=== PATIENT | female | born 1985 | race Caucasian/White ===

== ENCOUNTER 2019-02-25 04:50 | Inpatient (IN) | payer MEDICAID ==
[2019-02-25 06:48] LABS: ADD MAN DIFF? NO
[2019-02-25 06:52] LABS: BASOPHILS % 0.5 % (0.0-2.0); EOSINOPHILS # 0.1 10^3/ul (0.0-0.5); EOSINOPHILS % 0.9 % (0.0-7.0); HEMATOCRIT 35.8 % (37.0-47.0); HEMOGLOBIN 12.2 g/dl (12.0-16.0); LYMPHOCYTES # 1.5 10^3/ul (0.8-2.9); LYMPHOCYTES % 17.6 % (15.0-51.0); MEAN CORPUSCULAR HGB CONC 34.1 g/dl (32.0-37.0); MEAN CORPUSCULAR VOLUME 91.1 fl (82.0-101.0); MEAN PLATELET VOLUME 12.5 fl (7.4-10.4); MONOCYTE # 0.8 10^3/ul (0.3-0.9); MONOCYTES % 9.1 % (0.0-11.0); NEUTROPHILS % 70.7 % (39.0-77.0); PLATELET COUNT 118 10^3/UL (140-415); RED BLOOD COUNT 3.93 10^6/ul (4.20-5.40); RED CELL DISTRIBUTION WIDTH 13.6 % (11.5-14.5)
[2019-02-25 06:52] LABS: WHITE BLOOD COUNT 8.5 10^3/ul (4.8-10.8)
[2019-02-25 06:53] LABS: PLATELET COUNT 120 10^3/UL (140-415)
[2019-02-25 07:18] LABS: ALANINE AMINOTRANSFERASE 14 IU/L (13-69); ALBUMIN 3.5 g/dl (3.3-4.9); ALKALINE PHOSPHATASE 156 IU/L (42-121); ANION GAP 7 (5-13); ASPARTATE AMINO TRANSFERASE 17 IU/L (15-46); BILIRUBIN,INDIRECT 0.4 mg/dl (0-1.1); BILIRUBIN,TOTAL 0.4 mg/dl (0.2-1.3); BLOOD UREA NITROGEN 10 mg/dl (7-20); CALCIUM 9.1 mg/dl (8.4-10.2); CARBON DIOXIDE 22 mmol/L (21-31); CHLORIDE 109 mmol/L (97-110); CREATININE 0.55 mg/dl (0.44-1.00); Estimated GFR > 60 mL/min (>60); GLUCOSE 86 mg/dl (70-220); POTASSIUM 3.9 mmol/L (3.5-5.1); SODIUM 138 mmol/L (135-144); TOTAL PROTEIN 6.4 g/dl (6.1-8.1)
[2019-02-25] MEDS: LACTATED RINGER'S 1,000 ML IV ×3 (07:18→10:13)
[2019-02-25 07:19] LABS: INR 0.89; PROTIME 12.2 Sec (11.9-14.9)
[2019-02-25 07:20] LABS: PARTIAL THROMBOPLASTIN TIME 27.1 Sec (23.0-35.0)
[2019-02-25 07:45] LABS: ADD UMIC YES; UR ASCORBIC ACID NEGATIVE (NEGATIVE); UR BACTERIA FEW /HPF (NONE SEEN); UR BILIRUBIN (Dip) NEGATIVE (NEGATIVE); UR BLOOD (Dip) 3+ mg/dL (NEGATIVE); UR CLARITY CLEAR (CLEAR); UR COLOR STRAW (YELLOW); UR GLUCOSE (Dip) NEGATIVE (NEGATIVE); UR KETONES (Dip) NEGATIVE (NEGATIVE); UR LEUKOCYTE ESTERASE (Dip) NEGATIVE Leu/ul (NEGATIVE); UR NITRITE (Dip) NEGATIVE (NEGATIVE); UR RBC 0 /HPF (0-5); UR SPECIFIC GRAVITY (Dip) 1.004 (1.003-1.030); UR SQUAMOUS EPITHELIAL CELL FEW /HPF (FEW); UR TOTAL PROTEIN (Dip) NEGATIVE (NEGATIVE); UR UROBILINOGEN (Dip) NEGATIVE (NEGATIVE); UR WBC 0 /HPF (0-5)
[2019-02-25 07:47] LABS: THROMBIN TIME 14.9 SEC (13.8-19.1)
[2019-02-25] MEDS: TERBUTALINE 1 MG/ML INJ SC (08:57)
[2019-02-25] MEDS ORDERED: CARBOPROST 250 MCG INJ IM ×2 (10:00→12:30)
[2019-02-25] MEDS ORDERED: MISOPROSTOL 200 MCG TAB PR ×2 (10:00→12:30)
[2019-02-25] MEDS ORDERED: METHYLERGONOVINE 0.2 MG INJ IM ×2 (10:00→12:30)
[2019-02-25] MEDS ORDERED: OXYTOCIN 30 UNITS/LR 500 ML IV ×2 (10:00→12:30)
[2019-02-25] MEDS: CEFAZOLIN 2 GM/50 ML (PMX) 50 ML IVPB (10:13)
[2019-02-25] MEDS: CITRIC ACID/NA CITRATE 30 ML CUP PO (10:13)
[2019-02-25] MEDS: ONDANSETRON 4 MG INJ IV (10:14)
[2019-02-25] MEDS ORDERED: OXYTOCIN 30 UNITS/LR 500 ML BAG IV (10:34)
[2019-02-25] MEDS ORDERED: PHENYLephrine (100 MCG/ML) 10ML SYG (10:34)
[2019-02-25] MEDS ORDERED: morphine SULFATE/PF (10 MG/10 ML) INJ (10:35)
[2019-02-25] MEDS ORDERED: OXYTOCIN 10 UNIT INJ (10:35)
[2019-02-25] MEDS ORDERED: METOCLOPRAMIDE 10 MG INJ (11:09)
[2019-02-25] MEDS ORDERED: DEXAMETHASONE 4 MG/ML 1 ML INJ (11:09)
[2019-02-25] MEDS ORDERED: KETOROLAC 30 MG INJ (11:09)
[2019-02-25 11:21] LABS: AADO2 Cord Arterial 75.6 mmHg; Arterial Cord Blood pCO2 48.7 mmHG (25-50); CBA Base Excess -5.5 mmol/L; CBA COHb 0.4 %; CBA Oxygen Sat 28.3 mmHG; CBA Total Hemglobin 14.8 g/dl; Cord Blood Arterial pO2 15.8 mmHG (15.0-45.0); Fraction OxyHgb Cord Arterial 27.7 %; MODE ROOM AIR; MetHgb Cord Arterial 1.7 %; Sample Type CBA; Site CORD
[2019-02-25] MEDS: OXYTOCIN 30 UNITS/LR 500 ML IV ×2 (11:56→15:28)
[2019-02-25] MEDS ORDERED: HYDROCODONE/APAP (5/325) TAB PO (12:00)
[2019-02-25] MEDS ORDERED: NALOXONE (0.4 MG/ML) INJ IV (12:00)
[2019-02-25] MEDS ORDERED: ONDANSETRON 4 MG INJ IV (12:00)
[2019-02-25] MEDS ORDERED: NALBUPHINE HCL (10 MG/1 ML) INJ IV (12:00)
[2019-02-25] MEDS ORDERED: HYDROmorphONE 0.5 MG/0.5 ML SYG IV ×2 (12:00)
[2019-02-25] MEDS ORDERED: morphine 2 MG INJ IV ×2 (12:00)
[2019-02-25] MEDS ORDERED: ACETAMINOPHEN 500 MG TAB PO (12:00)
[2019-02-25] MEDS ORDERED: METHYLERGONOVINE 0.2 MG TAB PO (12:30)
[2019-02-25] MEDS: DIPHENHYDRAMINE 50 MG INJ IV (14:05)
[2019-02-25 15:20] LABS: RAPID PLASMA REAGIN NONREACTIVE (NR)
[2019-02-25 16:39] LABS: HEPATITIS B SURFACE ANTIGEN NEGATIVE (NEGATIVE)
[2019-02-25] MEDS: SENNA/DOCUSATE NA (8.6MG/50MG) TAB PO (21:00)
[2019-02-26] MEDS: LACTATED RINGER'S 1,000 ML IV (02:22)
[2019-02-26 07:22] LABS: ADD MAN DIFF? NO
[2019-02-26] MEDS: KETOROLAC 30 MG INJ IV (07:24)
[2019-02-26 07:30] LABS: WHITE BLOOD COUNT 12.1 10^3/ul (4.8-10.8)
[2019-02-26 07:30] LABS: BASOPHILS % 0.1 % (0.0-2.0); EOSINOPHILS % 0.2 % (0.0-7.0); HEMATOCRIT 29.9 % (37.0-47.0); LYMPHOCYTES # 1.4 10^3/ul (0.8-2.9); LYMPHOCYTES % 11.6 % (15.0-51.0); MEAN CORPUSCULAR HGB CONC 33.4 g/dl (32.0-37.0); MEAN CORPUSCULAR VOLUME 92.6 fl (82.0-101.0); MEAN PLATELET VOLUME 12.9 fl (7.4-10.4); MONOCYTE # 0.9 10^3/ul (0.3-0.9); MONOCYTES % 7.5 % (0.0-11.0); NEUTROPHIL # 9.7 10^3/ul (1.6-7.5); NEUTROPHILS % 80.2 % (39.0-77.0); PLATELET COUNT 103 10^3/UL (140-415); RED BLOOD COUNT 3.23 10^6/ul (4.20-5.40); RED CELL DISTRIBUTION WIDTH 13.8 % (11.5-14.5)
[2019-02-26 07:49] LABS: ANION GAP 4 (5-13); BLOOD UREA NITROGEN 6 mg/dl (7-20); CALCIUM 8.2 mg/dl (8.4-10.2); CARBON DIOXIDE 25 mmol/L (21-31); CHLORIDE 106 mmol/L (97-110); CREATININE 0.57 mg/dl (0.44-1.00); Estimated GFR > 60 mL/min (>60); GLUCOSE 85 mg/dl (70-220); POTASSIUM 3.4 mmol/L (3.5-5.1); SODIUM 135 mmol/L (135-144)
[2019-02-26] MEDS: SENNA/DOCUSATE NA (8.6MG/50MG) TAB PO ×2 (08:55→20:52)
[2019-02-26] MEDS ORDERED: HYDROCODONE/APAP (5/325) TAB PO (10:30)
[2019-02-26] MEDS: IBUPROFEN 800 MG TAB PO ×2 (13:31→20:52)
[2019-02-26] MEDS: LANOLIN HPA 1 PKT TOP (13:31)
[2019-02-26] MEDS: HYDROCODONE/APAP (5/325) TAB PO (18:27)
[2019-02-27] MEDS: IBUPROFEN 800 MG TAB PO ×2 (03:36→20:24)
[2019-02-27] MEDS: SENNA/DOCUSATE NA (8.6MG/50MG) TAB PO ×2 (08:27→20:24)
[2019-02-27] MEDS: HYDROCODONE/APAP (5/325) TAB PO ×2 (12:18→17:18)
[2019-02-28] MEDS: IBUPROFEN 800 MG TAB PO (04:09)
[2019-02-28 08:11] LABS: ADD MAN DIFF? NO
[2019-02-28 08:30] LABS: BASOPHILS % 0.3 % (0.0-2.0); EOSINOPHILS # 0.2 10^3/ul (0.0-0.5); EOSINOPHILS % 1.6 % (0.0-7.0); HEMATOCRIT 27.8 % (37.0-47.0); HEMOGLOBIN 9.4 g/dl (12.0-16.0); LYMPHOCYTES # 1.8 10^3/ul (0.8-2.9); LYMPHOCYTES % 17.9 % (15.0-51.0); MEAN CORPUSCULAR HEMOGLOBIN 31.5 pg (29.0-33.0); MEAN CORPUSCULAR HGB CONC 33.8 g/dl (32.0-37.0); MEAN CORPUSCULAR VOLUME 93.3 fl (82.0-101.0); MEAN PLATELET VOLUME 12.7 fl (7.4-10.4); MONOCYTE # 0.7 10^3/ul (0.3-0.9); NEUTROPHIL # 7.5 10^3/ul (1.6-7.5); NEUTROPHILS % 72.6 % (39.0-77.0); PLATELET COUNT 120 10^3/UL (140-415); RED BLOOD COUNT 2.98 10^6/ul (4.20-5.40); RED CELL DISTRIBUTION WIDTH 14.1 % (11.5-14.5)
[2019-02-28 08:30] LABS: WHITE BLOOD COUNT 10.3 10^3/ul (4.8-10.8)
[2019-02-28] MEDS: SENNA/DOCUSATE NA (8.6MG/50MG) TAB PO (08:33)
[2019-02-28] MEDS: DIPHTH/TET/ACEL PERTUSS (ADULT) 0.5 ML VIAL IM* (09:00)
[2019-02-28] MEDS: MEASLES,MUMPS,RUBELLA VACCINE INJ SC* (09:00)
[2019-02-28] MEDS: HYDROCODONE/APAP (5/325) TAB PO (11:34)
== END 2019-02-28 13:57 | disposition home or self-care (01) | DRG 783 ==
LOC: OBT 04:50 → L-D 04:50 → OBT 09:24 → L-D 09:29 → PP1 15:15
PROC: 10D00Z1 Extraction of Products of Conception, Low, Open Approach (ICD-10-PCS; principal; 2019-02-25)
PROC: 0UB70ZZ Excision of Bilateral Fallopian Tubes, Open Approach (ICD-10-PCS; 2019-02-25)
PROC: 0UN90ZZ Release Uterus, Open Approach (ICD-10-PCS; 2019-02-25)
DX: O34.211 Maternal care for low transverse scar from previous cesarean delivery (principal); O45.93 Premature separation of placenta, unspecified, third trimester; O99.89 Other specified diseases and conditions complicating pregnancy, childbirth and the puerperium; N73.6 Female pelvic peritoneal adhesions (postinfective); O99.02 Anemia complicating childbirth; D50.9 Iron deficiency anemia, unspecified; Z3A.36 36 weeks gestation of pregnancy; Z37.0 Single live birth; Z30.2 Encounter for sterilization
CPT/HCPCS: 36600; 76815; 76818; 80048; 80053; 81001; 82803; 85025; 85049; 85610; 85670; 85730; 86592; 86850; 86900; 86901; 87340; 88302; 88307; 99464